=== PATIENT | male | born 1980 | race Caucasian/White ===

== ENCOUNTER 2024-08-03 13:34 | Emergency (ER) | payer OTHER, SELFPAY ==
--- NOTE | 2024-08-03 13:37 | ED.SKABFB ---
HPI - Skin/Abscess/Foreign Bdy General Chief complaint: Skin/Abscess/Foreign Body Stated complaint: Bee Sting/Left Hand Time Seen by Provider: 08/03/24 13:37 Source: patient and RN notes reviewed Mode of arrival: ambulatory Limitations: no limitations History of Present Illness HPI narrative: 43-year-old male presents with concern for of bee sting to his left hand. Reports he got stung yesterday. Reports today it feels warm, tender, hard, swollen, red. Reports he has nausea. MD complaint: insect bite/sting Related Data Home Medications Medication Instructions Recorded Confirmed escitalopram oxalate 20 mg tablet 20 mg PO DAILY 08/03/24 08/03/24 Allergies Allergy/AdvReac Type Severity Reaction Status Date / Time No Known Allergies Allergy Verified 08/03/24 13:46 Review of Systems Review of Systems: CONSTITUTIONAL: Denies malaise, chills, sweats, or fever. EYES: Denies redness, or discharge. ENT: Denies rhinorrhea, congestion, swollen lips, swollen tongue CARDIOVASCULAR: Denies chest pain, palpitations, or edema. RESPIRATORY: Denies cough or dyspnea. GASTROINTESTINAL: Denies abdominal pain, nausea, vomiting SKIN: Reports insect sting to the left hand with redness, warmth, tenderness MUSCULOSKELETAL: Denies joint pain or myalgia. NEUROLOGIC: Denies headache. All systems reviewed & are unremarkable except as noted in HPI and below PMFSH Comments At time of signature, agree with nursing past medical, surgical, social and family history. There is no relevant family history pertinent to the presenting complaint Exam Narrative: GENERAL: Well-appearing, well-nourished, and in no acute distress. HEAD: Normocephalic, atraumatic. EYES: PERRLA, conjunctivae clear, and EOMI. ENT: Mucous membranes moist. Oropharynx without edema, erythema or lesions. NECK: Supple. No lymphadenopathy CHEST: Clear to auscultation. No respiratory distress. HEART: Regular rate and rhythm. SKIN: Warm, dry. Erythema, induration, warmth noted to the dorsal left hand extending to the left digits and up the left lower arm. NEURO: Alert and oriented x3. PSYCH: Normal mood and affect Course Course Emergency Course: Patient is aware of diagnosis, understands and agrees to treatment plan. Anticipatory guidance given. Patient agrees to follow-up as directed and is aware of reasons to seek care at the emergency department. Portions of this record may have been created with voice recognition software Level of Care: Express Care Visit Vital Signs Vital signs: Reviewed. MDM - Skin/Abscess/Foreign Bdy MDM Narrative Medical decision making narrative: Does not appear at this time to be erythema multiforme, bullous, SJS, TEN; no evidence at this time to suggest RMSF, endocarditis or Lyme disease; patient looks well, nontoxic and is tolerating oral intake; no neurologic signs or symptoms; no headache, photophobia or neck pain; afebrile; appropriate for initial outpatient treatment; discussed the importance of follow-up, patient agrees; question, viral exanthema, contact dermatitis, allergic dermatitis, eczema, urticaria, cellulitis, allergic reaction. No soft palate or uvula edema, no tongue, lip edema or other mucosal involvement, no respiratory compromise, no stridor, no wheezing, no wheezing, no history of syncope, no hypotension, no nausea, vomiting, or diarrhea. Instructed patient to go to nearest ER immediately for any worsening symptoms including but not limited to: fever, spreading rash, pain, sore throat, headache, dizziness, chest pain, trouble breathing, or any symptoms concerning to the patient. Critical Care Time Critical Care Time Critical Care Time: No Discharge Plan Discharge Clinical Impression: Insect bite of hand with infection Patient Disposition: Home, Self-Care Condition: Stable Instructions: Antibiotic Form, Cellulitis (ED) Additional Instructions: Please follow up with your Primary Care Doctor within 48
[2024-08-03 13:42] VITALS: BP 126/70; PULSE 100; RESP 16; TEMP 36.4; O2SAT 100
== END 2024-08-03 13:57 | disposition home or self-care (01) ==
PROVIDERS: Emergency Provider Nurse Practitioner; PCP Family Medicine
DX: T63.441A Toxic effect of venom of bees, accidental (unintentional), initial encounter (principal); L08.9 Local infection of the skin and subcutaneous tissue, unspecified
CPT/HCPCS: 99213; G0463

== ENCOUNTER 2025-03-01 12:49 | Emergency (ER) | payer OTHER, SELFPAY ==
[2025-03-01 12:59] VITALS: BP 127/83; RESP 16; TEMP 36.5; O2SAT 100
--- NOTE | 2025-03-01 13:11 | ED.EYEPROB ---
HPI - Eye Problem General Chief complaint: Eye Problems Stated complaint: right eye pain Source: patient Mode of arrival: ambulatory Limitations: no limitations History of Present Illness HPI Narrative: 44-year-old male presented for complaint of a foreign body sensation in the right eye since last. He states he attempted multiple times to irrigate the but was unsuccessful. also reports rubbing the eye multiple times. Denies purulent drainage, itching, vision changes, photophobia or headache. Patient says he is unsure what could have been in the eye, he denies known injury. MD chief complaint: eye pain Related Data Home Medications ?Medication ?Instructions ?Recorded ?Confirmed ?Last Taken ?Type bupropion HCl 300 mg 24 hr tablet, mg PO 03/01/25 Unknown History extended release Allergies Allergy/AdvReac Type Severity Reaction Status Date / Time No Known Allergies Allergy Verified 03/01/25 12:58 Review of Systems Review of Systems: CONSTITUTIONAL: Denies body aches, fever, chills EYES:Endorses FB sensation, Denies visual changes, swelling, redness or photophobia ENT: Denies rhinorrhea, congestion, sore throat, or otalgia. SKIN: Denies rash, itching, or wounds. MUSCULOSKELETAL: Denies back pain, joint pain, or myalgia. NEUROLOGIC: Denies headache, numbness, tingling, or weakness. All systems reviewed & are unremarkable except as noted in HPI and below PMFSH Comments At time of signature, I have reviewed and agree with nursing past medical, surgical, social and family history unless otherwise noted. Please see nursing chart for further information. There is no relevant family history pertinent to the presenting complaint Exam Narrative: GENERAL: Well-appearing HEAD: Normocephalic, atraumatic. EYES: No conjunctival injection, No eye lid swelling/redness. PERRLA, EOMI. Lid eversion shows no foreign body, none identified with whitt lamp exam. ENT: Mucous membranes pink and moist. No rhinorrhea. CHEST: Clear to auscultation. SKIN: Warm, dry, no rash. Normal skin turgor. NEURO: No focal deficits. Alert and oriented x3 PSYCH: Normal affect. Course Course Emergency Course: Patient is aware of diagnosis, understands and agrees to treatment plan. Anticipatory guidance given. Patient agrees to follow-up as directed and is aware of reasons to seek care at the emergency department. Portions of this record may have been created with voice recognition software Level of Care: Express Care Visit Vital Signs Vital signs: Vital Signs Temperature 97.7 F 03/01/25 12:59 Respiratory Rate 16 03/01/25 12:59 Blood Pressure 127/83 03/01/25 12:59 Pulse Oximetry 100 03/01/25 12:59 Oxygen Delivery Room Air 03/01/25 12:59 Temperature 97.7 F 03/01/25 12:59 Respiratory Rate 16 03/01/25 12:59 Blood Pressure 127/83 03/01/25 12:59 Pulse Oximetry 100 03/01/25 12:59 Oxygen Delivery Room Air 03/01/25 12:59 Procedures FB Removal Eye Foreign Body #1: Foreign Body Removal Date: 03/01/25 Location: eye (R) Topical anesthetic used: tetracaine Foreign body: other (None visualized) Evidence of corneal penetration: No Procedure performed under: other (whitt lamp) Patient tolerated procedure: well and no complications Foreign Body Removal Narrative: right eye was anesthetized with 1 drop of tetracaine and anesthesia was achieved. Lid was everted and examined for foreign body. No foreign body, corneal abrasion, or ulceration identified with Whitt lamp. The eye was flushed with eye wash. Pt tolerated procedure well. MDM - Eye Problem MDM Narrative Medical decision making narrative: No foreign body, corneal abrasion, or ulceration identified with Whitt lamp. The eye was flushed with eye wash. Discussed physical exam findings. Pt advised follow up with seeing eye dog teacher and provided with contact info. Advised supportive measures and signs/symptoms to go to the ER. Pt is appropriate for outpt treatment and f/u. Differential Diagnosis Differential diagnosis: Likely corneal abrasion, conjunctivitis, acute iritis and other Discharge Plan Discharge Clinical Impression: Foreign body sensation, right eye Patient Disposition: Home, Self-Care Condition: Stable Instructions: Antibiotic Form, Eye Foreign Body (ED) Additional Instructions: Please contact an eyecare specialist upon discharge today for further evaluation and management. [facility] [phone] [facility] [phone] [facility] [phone] [facility] [phone] [facility] ?[phone] Avoid touching or rubbing your eye. Use over the counter lubricating eye drops as needed for irritation Use a warm or cool washcloth on your eye for comfort You may take Tylenol or ibuprofen for pain Go to the emergency room if you have severe pain or pressure behind your eye, difficulty seeing, or other severe symptoms Patient Language: Algerian Prescriptions: New ofloxacin 0.3 % drops See Rx Instructions .ROUTE .COMPLEX Qty: 10 0RF Rx Instructions: put 2 drops into right every 4 hours x 2 days, then 2 drops 4 times/day days 3-7 No Action penicillin V potassium 500 mg tablet 500 mg PO Q12H 10 Days Qty: 20 0RF methylprednisolone [Medrol (Samir)] 4 mg tablets,dose pack See Rx Instructions .ROUTE .COMPLEX Qty: 21 0RF Rx Instructions: orally per package directions bupropion HCl 300 mg tablet extended release 24 hr PO Follow-up/Referrals: Juliann,Niraj Adam M.D. [Primary Care Provider] - Stand Alone Forms: Work/School Release IP
--- NOTE | 2025-03-01 13:24 | PC.NURSE ---
eye chart acuity done 20/25 bilat. with correction.
--- OUTSIDE RECORDS SUMMARY | 2025-03-01 14:00 | XMS_ITS | Clinical Summary ---
Author Organization [facility] [place] [address] [facility] [place] Address [address] [place] [address] Care Team Providers Care Roller Coaster Engineer Name Role Phone Niraj Humphreys MD Primary Care Provider [phone] Niraj Humphreys MD Unavailable [phone] Allergies No known active allergies Medications melatonin tablet Take 1 tablet (3 mg total) by mouth daily 90 tablet 3 08/24/2024 Active buPROPion XL (WELLBUTRIN XL) 300 mg 24 hr tabletIndicatio ns:major depressive disorder Take 1 tablet (300 mg total) by mouth every morning 90 tablet 3 11/21/2024 5 Active citalopram (CeleXA) 20 mg tabletIndicatio ns:major depressive disorder Take 2 tablets (40 mg total) by mouth daily 60 tablet 11 11/21/2024 5 Active Active Problems Problem Noted Date Diagnosed Date Fatigue 11/17/2024 Assessment & Plan (11/17/2024 4:26 PM PRESSURE SUPERVISOR): Concerned testosterone is low. Has had labs in past but always shows normal. Advised OTC testosterone supplement and monitor response. Annual physical exam 08/17/2024 Assessment & Plan (08/17/2024 4:54 PM CDT): In regard to health maintenance, Eat a healthy diet: focus on lean meats and proteins, more fruits, vegetables and whole grains and low in sugars and fats. Limit red meat and avoid processed meat. Maintain a healthy weight; avoid being overweight. Aim for a normal body mass index (BMI) of 18.5-24.9. Help learning to eat healthier, we can set up appointment with activity assistant/internal combustion engine assembler. Have an active lifestyle, strive for 30 minutes of moderate exercise 5 times a week and strength or resistance training at least twice a week. Use broad-spectrum (UVA+UVB) sunscreen with SPF 30 or greater, is water resistant, limit time spent in the sun (10 am-4pm), wear hat, wear UV protective clothing, wear sunglasses. Never use a tanning bed. Skin that was irradiated may be more sensitive over your lifetime. Limit alcohol intake, 1 drink per day for a woman and 2 drinks per day for a man. BMI 27.0-27.9,adult 08/17/2024 Assessment & Plan (11/17/2024 4:26 PM PRESSURE SUPERVISOR): Weight appropriate for patient. Assessment & Plan (08/17/2024 4:55 PM CDT): Encouraged heart healthy diet and lifestyle changes. Advised aerobic exercise 150 min/week. Moderate episode of recurrent major depressive d isorder 02/20/2016 Overview (03/06/2017): Major depressive disorder Assessment & Plan (11/17/2024 4:26 PM PRESSURE SUPERVISOR): Not well controlled on tapering Celexa and starting Busporion. He is currently taking Celexa 40 mg again. Will add Wellbutrin XR and monitor response. Assessment & Plan (08/17/2024 4:54 PM CDT): Moods unstable and not controlled. Having side-effects with Celexa will taper off and start on Wellbutrin. Discussed how to taper and instruction placed in wrap-up paper. Will reassess in 3 months. Melanocytic nevus 02/19/1990 Overview (03/06/2017): Mole Immunizations Immunization Administration Dates Next Due Hep A, Ped Unspecified 12/31/1999 Influenza, Trivalent, Preser vative Free, Intramuscular 09/14/2024 Influenza, Unspecified 08/17/2024(Deferr ed: Patient Refused),07/31/2023(Deferred: Patient Refused),02/19/2023(Deferred: Patient Refused),07/31/2022(Deferred: Patient Refused),02/14/2022(Deferred: Patient Refused),09/24/2020(Deferred: Patient Refused),11/30/2019(Deferred: Patient Refused),11/30/2019(Deferred: Patient Refused),09/19/2019(Deferred: Patient Refused),01/07/2019(Deferred: Patient Refused),11/30/2018(Deferred: Patient Refused),12/02/2016(Deferred: Patient Refused) Surgical History Surgery Date Site/Laterality Comments NO PAST SURGERIES Medical History Medical History Date Comments Anxiety Family History Medical History Relation Name Comments No Known Problems Father No Known Problems Mother No Known Problems Sister Relation Name Status Comments Father Alive Mother Alive Sister Alive Social History Tobacco Use Types Packs/Day Years Used Date Smoking Tobacco: Former Cigarettes Q uit: 03/24/2018 Smokeless Tobacco: Never Tobacco Cessation:Counseling Given: Yes Comments:Pt vapes stopped vapping Alcohol Use Standard Drinks/Week Comments No 0 (1 standard drink = 0.6 oz pur e alcohol) AUDIT-C Answer Date Recorded Q1: How often do you have a drink containing alc ohol? Never 02/19/2023 Average Number of Drinks Not on file 023 Frequency of Binge Drinking Not on file 01/29 PHQ-2 Answer Date Recorded PHQ-2 Total Score (If total score is 3 or more points, staff should administer the PHQ-9) 6 11/17/2024 PHQ-9 Answer Date Recorded PHQ-9 Total Score 21 11/17/2024 Sex and Gender Information Value Date Recorded Sex Assigned at Not on file Legal Sex Male 6:37 PM PRESSURE SUPERVISOR Gender Identity Not on file Sexual Orientation Not on file Obstetrics History Last Filed Vital Signs Vital Sign Reading Time Taken Comments Blood Pressure 108/80 11/17/2024 3:48 PM PRESSURE SUPERVISOR Pulse 86 11/17/2024 3:48 PM PRESSURE SUPERVISOR Temperature 36.8 C (98.3 F) 02/19/2023 4:26 PM CDT Respiratory Rate 18 11/17/2024 3:48 PM PRESSURE SUPERVISOR Oxygen Saturation 100% 11/17/2024 3:48 PM PRESSURE SUPERVISOR Inhaled Oxygen Concentration - - Weight 93.4 kg (205 lb 12.8 oz) 11/17/2024 3:48 PM PRESSURE SUPERVISOR Height 182.9 cm (6' 0.01 ) 11/17/2024 3:48 PM CS T Body Mass Index 27.91 11/17/2024 3:48 PM PRESSURE SUPERVISOR Plan of Treatment Health Maintenance Due Date Last Done Comments Hepatitis C Screening 1982 DTaP/Tdap/Td Vaccine (1 - Tdap) 1993 Hepatitis B Screening 2000 Covid-19 Vaccine ( season) 2024 12/26/2021, 11/28/2021 Regular Well Visit/Exam 18-64 08/17/2025 08/17/2024, 02/19/2023 Depression Screening 11/17/2025 11/17/2024, 11/17/2024, 08/17/2024, Additional history exists Influenza Vaccine Completed 09/14/2024 HPV Vaccines Aged Out No longer eligi ble based on patient's age to complete this topic Pneumococcal vaccine <65 Aged Out No longer eligible based on patient's age to complete this topic Varicella Vaccines Discontinued Insurance [facility] CHOICE PLUS Care Teams Roller Coaster Engineer Relationship Specialty Start Date End Date Niraj Humphreys MD [address] [place] [address] PCP - General Family Medicine 06/16/17 Niraj Humphreys MD [address] [place] [address] 06/16/17
--- OUTSIDE RECORDS SUMMARY | 2025-03-01 14:00 | XMS_ITS | Referral Summary ---
Author Organization [facility] [place] [facility]to Address [address] [place] [address] Care Team Providers Care Shipping And Receiving Associate Name Role Phone Niraj Humphreys MD Primary Care Provider [phone] Niraj Humphreys MD Unavailable [phone] Allergies No known active allergies Medications melatonin [...] 11/17/2024 Assessment & Plan (11/17/2024 4:26 PM SUPERINTENDENT GENERAL): Concerned testosterone is low. Has had labs [...] healthier, we can set up appointment with pastry cook/order dispatcher chief. Have an active lifestyle, strive for 30 [...] 08/17/2024 Assessment & Plan (11/17/2024 4:26 PM SUPERINTENDENT GENERAL): Weight appropriate for patient. Assessment & Plan (08/17/2024 4:55 PM CDT): Encouraged heart healthy diet and lifestyle changes. Advised aerobic exercise 150 min/week. Moderate episode of recurrent major depressive d isorder 02/20/2016 Overview (03/06/2017): Major depressive disorder Assessment & Plan (11/17/2024 4:26 PM SUPERINTENDENT GENERAL): Not well controlled on tapering Celexa and [...] Refused),01/07/2019(Deferred: Patient Refused),11/30/2018(Deferred: Patient Refused),12/02/2016(Deferred: Patient Refused) Social History Tobacco Use Types Packs/Day Years [...] on file Legal Sex Male 6:37 PM SUPERINTENDENT GENERAL Gender Identity Not on file Sexual Orientation Not on file Last Filed Vital Signs Vital Sign Reading Time Taken Comments Blood Pressure 108/80 11/17/2024 3:48 PM SUPERINTENDENT GENERAL Pulse 86 11/17/2024 3:48 PM SUPERINTENDENT GENERAL Temperature 36.8 C (98.3 F) 02/19/2023 4:26 PM CDT Respiratory Rate 18 11/17/2024 3:48 PM SUPERINTENDENT GENERAL Oxygen Saturation 100% 11/17/2024 3:48 PM SUPERINTENDENT GENERAL Inhaled Oxygen Concentration - - Weight 93.4 kg (205 lb 12.8 oz) 11/17/2024 3:48 PM SUPERINTENDENT GENERAL Height 182.9 cm (6' 0.01 ) 11/17/2024 3:48 PM CS T Body Mass Index 27.91 11/17/2024 3:48 PM SUPERINTENDENT GENERAL Plan of Treatment Not on file Insurance [facility] CHOICE PLUS Care Teams Shipping And Receiving Associate Relationship Specialty Start Date End Date Niraj Humphreys MD [address] [place] [address] PCP - General Family Medicine 06/16/17 Niraj Humphreys MD [address] [place] [address] 06/16/17
--- NOTE | 2025-03-02 11:59 | PC.NURSE ---
pt called and requested work note for today. genevieve aviles np said to modify original note for 2 days.
== END 2025-03-01 13:25 | disposition home or self-care (01) ==
PROVIDERS: Emergency Provider Nurse Practitioner Family; PCP Family Medicine
DX: H57.8A1 Foreign body sensation, right eye (principal)
CPT/HCPCS: 99213; A9270; G0463